=== PATIENT | male | born 1945 | race Caucasian/White ===

== ENCOUNTER 2018-05-13 13:44 | Outpatient (CLI) | payer MEDICARE, BC ==
--- NOTE | 2018-05-13 18:01 | MRI ---
MRI ABDOMEN WITH AND WITHOUT CONTRAST: 05/13/18 HISTORY: Renal masses. D49.511. COMPARISON: Abdomen CT 10/15/17. FINDINGS: Multiplanar and multisequence MRI abdomen was performed prior to and after the intravenous administra tion of contrast. The visualized portions of the liver is unremarkable as well as the spleen and adrenal glands. No int rahepatic or extrahepatic biliary dilatation. There are multiple bilateral simple as well as hemorrhagic renal cysts. There are bilateral hemorrhag ic cysts some with layering hemorrhage and some with retracting clot. There is, however, enlarging ma ss interpolar right kidney peripheral hemorrhage measuring 3.1 cm axial image 34, series 9 which in 2 017 only measured 2 cm and in 2018 measured 2.8 cm. Concern for slow growing renal cell carcinoma. T his mass is approximately 75% exophytic. This mass is annotated with arrows on saved image of series 12, image 35. Moderate atherosclerotic plaque. No dilated loops of large or small bowel. Marrow signal is unremarkable. IMPRESSION: 1. Findings suspicious for an interpolar right exophytic mass which is enlarging in size taking back to 2016 concerning for a slow growing renal cell carcinoma. There are also bilateral renal hemor rhagic cysts. 2. Diffuse hepatic steatosis. 3. Although very incompletely evaluated due to it being out of the field of view, there appear t o be enlarging T1 hypointensities of the spleen which may reflect metastatic disease. This is best se en on coronal image 22 of series 15 and coronal image 17 of series 15. CODE: T POS: JESSICA
== END 2018-05-13 13:45 | disposition home or self-care (01) ==
LOC: TBSIIMAG 13:44
PROVIDERS: ATTEND Urology
DX: D49.511 Neoplasm of unspecified behavior of right kidney (principal); N28.1 Cyst of kidney, acquired; K76.0 Fatty (change of) liver, not elsewhere classified; R93.5 Abnormal findings on diagnostic imaging of other abdominal regions, including retroperitoneum
CPT/HCPCS: 74183; 82565

== ENCOUNTER 2019-05-28 08:06 | Outpatient (CLI) | payer MEDICARE, BC ==
--- NOTE | 2019-05-28 09:48 | CT ---
CT ABDOMEN WITHOUT AND WITH IV CONTRAST: HISTORY: Renal cancer. Followup. COMPARISON: Multiple previous CT, sonogram, and MRI exams of the kidneys. FINDINGS: Each renal collecting system and proximal ureter are decompressed. No stones are reliably demonstrat ed. The pelvis is not imaged. Calcification at each renal hilum is favored to be arterial, as there is prominent calcification in the arterial structures. Gallbladder is surgically absent. Postopera tive changes of the anterior abdomen are also evident. No splenic lesion visible. Postoperative changes of the right retroperitoneum include interval resection of the enhancing exophy tic mass along the lateral cortex of the right kidney. Numerous bilateral renal cysts are again demonstrated. The slightly hyperdense cyst along the medial cortex of the left kidney now measures 2.2 cm greatest oblique diameter, smaller than on previous st udies (3.3 cm on 08/30/2016). Small amount of calcification was present within the dependent portion o f this hyperdense cyst. No enhancing renal masses are apparent. Tiny left adrenal adenoma is stable. Diverticula arise from the partially visualized colon without a djacent inflammation. Prominent degenerative changes of the lumbar spine. IMPRESSION: 1. Interval resection of the right renal mass. 2. Bilateral renal cysts are overall stable. No new abnormalities. 3. Atherosclerosis. 4. Diverticulosis. POS: [facility]
== END 2019-05-28 08:07 | disposition home or self-care (01) ==
LOC: BICCT 08:06
PROVIDERS: ATTEND Urology
DX: C64.2 Malignant neoplasm of left kidney, except renal pelvis (principal); K57.30 Diverticulosis of large intestine without perforation or abscess without bleeding; I70.0 Atherosclerosis of aorta; N28.1 Cyst of kidney, acquired; N28.89 Other specified disorders of kidney and ureter
CPT/HCPCS: 74170; 82565

== ENCOUNTER 2020-01-07 09:41 | Outpatient (CLI) | payer MEDICARE, BC ==
[2020-01-07] MEDS ORDERED: Iopamidol-370 76% 500 ML 1 ML ONE (13:05)
--- NOTE | 2020-01-07 14:02 | CT ---
CT ABDOMEN WITH AND WITHOUT CONTRAST: 01/07/20 Postcontrast images were obtained with portal venous and delayed venous phase. INDICATIONS: Malignant neoplasm of left kidney given as reason for exam. [facility] Comparison made to prior CT abdomen 05/28/19 and 10/15/17. FINDINGS: Noncontrast images show bilateral perinephric stranding more prominent on the right. This is a stable finding from 05/28/19. There are small calcifications seen within the collecting structures; however , these appear to be arterial in nature and are stable bilaterally. There are numerous bilateral renal cystic lesions which have been previously described. These all shira ear stable in appearance. On the left, there is a complex cystic lesion which is exophytic from the posterior left renal cortex measuring 2.0 cm which exhibits high Hounsfield units. It is stable from prior exam. On the right, there is a complex exophytic lesion from the posterior right renal cortex measuring 1.5 cm which is stable from the prior exam. Another complex low density lesion within the mid portion of the right renal cortex measures 1.2 cm is stable. The numerous other cystic lesions have more benign densities and all appear stable in appearance. There is no hydronephrosis. Lung bases are clear. Liver, spleen, pancreas unremarkable. Adrenal glands unremarkable. Aorta is calcified but normal caliber. Visualized bowel loops unremarkable. The osseous structures are unremarkable. IMPRESSION: Kidneys appear stable from prior exam. Bilateral perinephric stranding is again noted. Numerous cysti c lesions in both kidneys, several of which are complex as described above. The renal findings appear stable from 05/28/19. POS: [facility]
== END 2020-01-07 09:42 | disposition home or self-care (01) ==
LOC: BICCT 09:41
PROVIDERS: ATTEND Urology
DX: C64.2 Malignant neoplasm of left kidney, except renal pelvis (principal); N28.1 Cyst of kidney, acquired
CPT/HCPCS: 74170; 82565; Q9967

== ENCOUNTER 2022-02-28 09:55 | Outpatient (CLI) | payer MEDICARE, BC ==
[2022-02-28] MEDS ORDERED: Iopamidol-370 76% 500 ML 1 ML ONE (14:07)
== END 2022-02-28 09:56 | disposition home or self-care (01) ==
LOC: BICCT 09:55
PROVIDERS: ATTEND Urology
DX: C64.2 Malignant neoplasm of left kidney, except renal pelvis (principal); N28.1 Cyst of kidney, acquired
CPT/HCPCS: 74170; 82565; Q9967

== ENCOUNTER 2022-04-05 08:56 | Day surgery (SDC) | payer MEDICARE, BC ==
[2022-04-03 12:03] VITALS: BMI 27.0
[2022-04-05 09:13] LABS: #Eosinphils 0.2 thou/uL (0.0-0.7); #Lymphocytes 2.2 thou/uL (1.20-3.40); #Monocytes 0.5 thou/uL (0.11-0.59); #Neutrophils 5.7 thou/uL (1.40-6.50); %Basophils 0.2 % (0.0-1.0); %Eosinophils 2.2 % (0.0-10.0); %Lymphocytes 25.6 % (21.0-51.0); %Monocytes 6.1 % (0.0-10.0); Hemoglobin 15.5 g/dL (14.0-18.0); Mean Corpuscular HGB CONC 32.9 g/dL (32.0-36.0); Mean Corpuscular Hemoglobin 32.6 pg (27.0-31.0); Mean Corpuscular Volume 99.1 fL (78.0-98.0); Platelet Count 264 thou/uL (130-400); Red Blood Cell (RBC) Count 4.75 mill/uL (4.70-6.10); White Blood Cell (WBC) Count 8.6 thou/uL (4.8-10.8)
[2022-04-05 09:23] LABS: PTT 32.3 sec (22.9-36.1); Prothrombin Time 13.6 sec (12.0-14.7)
[2022-04-05 09:49] VITALS: TEMP 97.9
[2022-04-05 13:37] VITALS: BP 153/72
== END 2022-04-05 13:00 | disposition home or self-care (01) ==
LOC: CT 08:56
PROVIDERS: ATTEND Urology
PROC: 0TB13ZX Excision of Left Kidney, Percutaneous Approach, Diagnostic (ICD-10-PCS; principal; 2022-04-05)
DX: D30.02 Benign neoplasm of left kidney (principal); I25.2 Old myocardial infarction; E11.9 Type 2 diabetes mellitus without complications; I51.9 Heart disease, unspecified; N40.1 Benign prostatic hyperplasia with lower urinary tract symptoms; R35.0 Frequency of micturition; Z85.528 Personal history of other malignant neoplasm of kidney; Z79.82 Long term (current) use of aspirin; Z79.84 Long term (current) use of oral hypoglycemic drugs; Z79.899 Other long term (current) drug therapy; Z88.5 Allergy status to narcotic agent; Z90.5 Acquired absence of kidney
CPT/HCPCS: 36415; 50200; 77012; 85025; 85610; 85730; 88305; 88333; 88334

== ENCOUNTER 2024-05-04 09:35 | Outpatient (CLI) | payer MEDICARE, BC ==
[2024-05-04] MEDS ORDERED: Iopamidol 370 76% 100 ML VIAL ONE (09:48)
== END 2024-05-04 09:36 | disposition home or self-care (01) ==
LOC: BICCT 09:35
PROVIDERS: ATTEND Urology
DX: C64.1 Malignant neoplasm of right kidney, except renal pelvis (principal); D36.9 Benign neoplasm, unspecified site; N28.89 Other specified disorders of kidney and ureter; N28.1 Cyst of kidney, acquired; E27.9 Disorder of adrenal gland, unspecified
CPT/HCPCS: 74160; 82565; Q9967

== ENCOUNTER 2025-05-12 08:10 | Outpatient (CLI) | payer MEDICARE, BC ==
[2025-05-12 09:15] LABS: Estimated GFR - POC 62.0
[2025-05-12] MEDS ORDERED: Iopamidol 370 76% 100 ML VIAL ONE (10:12)
== END 2025-05-12 08:11 | disposition home or self-care (01) ==
LOC: CT 08:10
PROVIDERS: ATTEND Urology
DX: C64.1 Malignant neoplasm of right kidney, except renal pelvis (principal); D36.9 Benign neoplasm, unspecified site
CPT/HCPCS: 36415; 74160; 82565; Q9967